=== PATIENT | male | born 1960 | race Caucasian/White ===

== ENCOUNTER 2019-04-29 13:31 | Outpatient (CLI) | payer OTHER ==
--- NOTE | 2019-04-30 14:59 | MRI Report ---
Reason: PAIN IN RIGHT KNEE Procedure Date: 04/29/2019 Accession Number: [id number] / [id number] Procedure: MRI - Knee RT W/O CPT Code: FULL RESULT: EXAM: RIGHT KNEE MRI WITHOUT CONTRAST EXAM DATE: 04/29/2019 02:58 PM. CLINICAL HISTORY: Right knee pain post trauma December 2018. COMPARISON: None. TECHNIQUE: Multiplanar, multisequence T1-weighted and fluid-sensitive sequences of the knee without contrast. Other: None. FINDINGS: Bones: There are screw tracks through the medial femoral condyle adjacent to the proximal attachment of the medial collateral ligament. There is focal hyperostosis of the medial femoral condyle at the attachment of the MCL. The findings are suggestive of prior repair of an MCL tear. There is extensive subchondral edema in the medial femoral condyle. Articular Cartilage: There is grade 3-4 erosion of the hyaline cartilage of the medial compartment. There is grade 2-3 erosion of the hyaline cartilage of the lateral and patellofemoral compartments. Medial Meniscus: There is a radial tear of the posterior horn of the medial meniscus immediately adjacent to the posterior root attachment. There is medial extrusion of the body. Lateral Meniscus: The lateral meniscus is intact. Cruciate Ligaments: Complete rupture of the ACL. PCL appears normal. Collateral Ligaments: Prior high-grade tear of the proximal medial collateral ligament. The lateral collateral ligament appears unremarkable. Tendons: The quadriceps, patellar, semimembranosus, and popliteus tendons are unremarkable. Musculature: No edema or fatty atrophy. Other: There is a moderate-sized joint effusion. There is a leaking popliteal cyst containing ossified loose bodies. The largest loose body measures 7 x 8 x 13 mm. The medial and lateral retinacula are intact. The subcutaneous tissues and fat pads are unremarkable. IMPRESSION: 1. Radial tear of the posterior horn of the medial meniscus with medial extrusion. 2. 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 3. Prior high-grade partial-thickness or full-thickness tear of the proximal attachment of the MCL with screw tracks through the femur suggestive of prior repair. 4. Complete rupture of the ACL. 5. Mild lateral and patellofemoral compartment osteoarthritis with a joint effusion. There are loose bodies in the popliteal cyst. RADIA
== END 2019-04-29 13:32 | disposition home or self-care (01) ==
LOC: DI 13:31
PROVIDERS: ATTEND Physician Assistant
DX: S83.241A Other tear of medial meniscus, current injury, right knee, initial encounter (principal); M17.11 Unilateral primary osteoarthritis, right knee; S83.511A Sprain of anterior cruciate ligament of right knee, initial encounter; M25.461 Effusion, right knee; M71.21 Synovial cyst of popliteal space [Baker], right knee

== ENCOUNTER 2023-03-18 06:54 | Outpatient (CLI) | payer OTHER ==
--- NOTE | 2023-03-19 16:34 | MRI Report ---
PROCEDURE: KNEE WO - RT INDICATIONS: KNEE PAIN TECHNIQUE: Noncontrast sagittal PD fast spin echo and T2 fast spin echo with fat saturation, sagittal 3-D gradie nt sequence with fat saturation; coronal T1 spin echo and PD fast spin echo with fat saturation, and axial PD fast spin echo with fat saturation through the knee. COMPARISON: None. FINDINGS: Image quality: Excellent. Menisci: Radial tearing of the posterior horn medial meniscus at the meniscal root ligament insertion site. Detachment of the medial meniscal body and anterior horn. Linear horizontal high T2 signal int ensity traverses the inner, middle, peripheral thirds of the posterior horn lateral meniscus, demonst rating inferior articular surface extension, indicating horizontal tearing. Cruciate ligaments: Full-thickness chronic appearing anterior cruciate ligament tear is present. Post erior cruciate ligament is intact. Medial structures: The medial collateral ligament appears thickened and intact. Visualized portions of the pes anserinus tendons appear normal. No abnormal bursal fluid. Lateral structures: The lateral collateral ligament, long and short heads of the biceps femoris tend on appear intact. The popliteus tendon appears normal. Iliotibial band appears normal. Anterior structures: The quadriceps and patellar tendons appear intact. Patellar alignment is sukhdev l. No femoral trochlear dysplasia or ventral trochlear prominence. No edema in the infrapatellar fa t pad. Bones and cartilage: No acute fracture nor contusion. There is a chronic depressed fracture of the po sterior 10 mm of the weightbearing aspect of the lateral tibial plateau, with a maximum depression of roughly 8 mm. Mild subchondral degenerative marrow edema within the central tibial plateau. Moderate tricompartmental periareolar articular osteophyte formation. Severe articular cartilage loss diffuse ly overlies the weightbearing aspects of the medial femoral condyle and medial tibial plateau. Mild a rticular cartilage loss diffusely overlies the weightbearing aspects of the lateral femoral condyle a nd lateral tibial plateau. Moderate articular cartilage loss overlies the patellar apex and medial pa tellar facet. Joint space: There is a small knee joint effusion. Multiple intra-articular loose bodies are present , largest of which measures 10 mm within a small Esposito's cyst. Normal appearing synovial plicae are i ncidentally noted. IMPRESSION: 1. Full-thickness chronic appearing anterior cruciate ligament tear. 2. Medial and lateral meniscal tearing. 3. Chronic depressed fracture of the lateral tibial plateau. 4. Tricompartmental osteoarthritis. Intra-articular loose bodies. 5. Findings suggestive of remote/healed medial collateral ligament tear. Reviewed by: Allie Cortez MD on 03/19/2023 4:33 PM PDT Approved by: Allie Cortez MD on 03/19/2023 4:33 PM PDT Station ID: [id number]
== END 2023-03-18 06:55 | disposition home or self-care (01) ==
LOC: DI 06:54
PROVIDERS: ATTEND Physician Assistant
DX: S83.511A Sprain of anterior cruciate ligament of right knee, initial encounter (principal); S83.241A Other tear of medial meniscus, current injury, right knee, initial encounter; S83.281A Other tear of lateral meniscus, current injury, right knee, initial encounter; M17.11 Unilateral primary osteoarthritis, right knee; M84.461A Pathological fracture, right tibia, initial encounter for fracture

== ENCOUNTER 2023-10-06 09:04 | Outpatient (CLI) | payer OTHER ==
[2023-10-06] MEDS ORDERED: ALBUTEROL 1 PUFF INH STA (10:41)
== END 2023-10-06 09:05 | disposition home or self-care (01) ==
LOC: RT 09:04
PROVIDERS: ATTEND Internal Medicine
DX: R06.02 Shortness of breath (principal)
CPT/HCPCS: 94060